=== PATIENT | male | born 2000 | race Caucasian/White ===

== ENCOUNTER 2023-10-13 09:59 | Emergency (ER) | payer OTHER ==
[~2023-10-13] VITALS: Ht 182.9 cm; Wt 93.8 kg
[2023-10-13] MEDS: LIDOCAINE 1% MDV 20ML VIAL SC ONE (12:50)
[2023-10-13] MEDS: DERMABOND TOPICAL SKIN ADHESIVE TOP ONE (13:35)
[2023-10-13 14:21] VITALS: BP 125/62; TEMP 97.8; O2SAT 99
== END 2023-10-13 14:57 | disposition home or self-care (01) ==
LOC: M ED 09:59
DX: S61.412A Laceration without foreign body of left hand, initial encounter (principal); W26.0XXA Contact with knife, initial encounter; Y92.009 Unspecified place in unspecified non-institutional (private) residence as the place of occurrence of the external cause; Y93.G1 Activity, food preparation and clean up; Y99.9 Unspecified external cause status